=== PATIENT | male | born 1975 | race Two or more races ===

== ENCOUNTER 2019-04-07 08:21 | Day surgery (SDC) | payer OTHER ==
[~2019-04-07] VITALS: Ht 172.7 cm; Wt 118.5 kg
[~2019-04-07 08:21] MED LIST: ACETAMINOPHEN 500 MG TABLET PO ONE; BUPIVACAINE-EPI 0.25%-1:200000 MPF 30 ML VIAL. INJ ONE; HYDROmorphone 2 MG/ML VIAL IV PRN; LIDOCAINE 1% PF 2 ML VIAL. ID PRN; MORPHINE SULFATE 2 MG/ML VIAL. IV PRN; ONDANSETRON PF 4 MG/2 ML VIAL. IV PRN; PROCHLORPERAZINE 10 MG/2 ML VIAL. IV PRN; fentaNYL PF VIAL 100 MCG/2 ML VIAL IV PRN
[2019-04-07] MEDS ORDERED: INDO25CA21 PO (08:54)
[2019-04-07] MEDS ORDERED: LISI-338 PO (08:54)
[2019-04-07] MEDS: IV RINGERS,LACTATED 1000ML 1,000 ML IV SCH ×2 (08:57→13:03)
[2019-04-07] MEDS ORDERED: ONDANSETRON PF 4 MG/2 ML VIAL. ONE (09:49)
[2019-04-07] MEDS ORDERED: DEXAMETHASONE SOD PHOS 20 MG/5 ML VIAL. ONE (09:49)
[2019-04-07] MEDS ORDERED: LIDOCAINE 2% PF 5 ML VIAL. ONE (09:49)
[2019-04-07] MEDS ORDERED: GLYCOPYRROLATE 1 MG/5 ML VIAL. ONE (09:49)
[2019-04-07] MEDS ORDERED: MIDAZOLAM HCL/PF 2 MG/2 ML VIAL. ONE (09:49)
[2019-04-07] MEDS ORDERED: ROCURONIUM 50 MG/5 ML VIAL. ONE (09:49)
[2019-04-07] MEDS ORDERED: fentaNYL PF VIAL 100 MCG/2 ML VIAL ONE ×2 (09:49→11:37)
[2019-04-07] MEDS ORDERED: NEOSTIGMINE METHYLSULFATE 5 MG/5 ML SYRINGE. ONE (09:49)
[2019-04-07] MEDS ORDERED: PROPOFOL 20 ML IV ONE (09:49)
[2019-04-07] MEDS ORDERED: KETOROLAC 30 MG/ML VIAL. ONE (09:52)
--- NOTE | 2019-04-07 12:02 | PDOC4 ---
Operative Note Operative Note Date: 04/07/2019 Preoperative diagnosis: Recurrent incisional hernia Postoperative diagnosis: Same Procedure: Robotic-assisted laparoscopic ventral hernia repair with mesh Surgeon: Gilbert Dictation: Patient is a 43-year-old gentleman who had a umbilical hernia repaired a year or so ago and developed a incisional hernia at the previous repaired site which was repaired and then subsequent has developed another hernia at the site. The procedure of robotic-assisted laparoscopic incisional hernia repair with mesh was explained to the patient in detail risks benefits were also discussed including bleeding infection injury to intra-abdominal contents possibly necessitating further open operations alternatives to this procedure also discussed with the patient who seemed to understand and gave both verbal and written consent to have the procedure performed. Patient was taken to the operating room placed in supine position general anesthesia was initiated once patient was sleep and intubated his abdomen was prepped and draped usual sterile fashion using ChloraPrep and area in the left upper quadrant was injected with quarter percent Marcaine with epinephrine incision was made with a 11 blade scalpel and a 5 mm this port was placed under direct visualization into the abdomen a pneumoperitoneum was then created and the abdomen was inspected no other abdomen maladies were noted other than the incisional hernia in the midline. Da Berny ports were then placed one in the left mid abdomen and one in the left lower abdomen and one in the left upper abdomen the da Berny robot was then brought in and docked all port sites surgeon went to the robotic console using grasper and Endo Shelby scissors the hernia and its contents were reduced. The hernia defect was then closed with a running 20 the LOC nonabsorbable suture. Ventral light ST mesh was then placed over the hernia defect this was secured into place with a running 20V LOC absorbable suture circumferentially. The peritoneum was closed over the mesh closure. The pneumoperitoneum was reduced all ports removed dementia robot was undocked from all ports all port sites were closed for septic and a Monocryl Mastisol Steri-Strips and island dressings were applied. The patient was awakened and extubated in the operating room taken to recovery in stable condition all sponge instrument needle counts listed as correct estimated blood loss 5 mL JANIYA JUAREZ MD Apr 07, 2019 12:01
--- NOTE | 2019-04-07 12:03 | DISCH ---
DISCHARGE INSTRUCTIONS Condition on Discharge Condition on Discharge: Stable Activity After Discharge Activity Instructions for Disc: Avoid exertion Other activity instructions: no lifting more than 20 pounds for 2 weeks Diet after Discharge Diet after Discharge: Regular Wound Incision Care Other wound/incision instructi: May shower in 24 hours Contacting the after DC Call your doctor for: If your condition worsens Follow-Up Follow up with: Dr. Juarez in 2 weeks JANIYA JUAREZ MD Apr 07, 2019 12:03
[2019-04-07] MEDS ORDERED: oxyCODONE/APAP 5/325 1 TAB TABLET PO ONE (13:00)
[2019-04-07] MEDS: fentaNYL PF VIAL 100 MCG/2 ML VIAL IV PRN ×2 (13:03→13:34)
[2019-04-07] MEDS ORDERED: OXYC1TAB15 PO (13:39)
[2019-04-07 13:51] VITALS: BP 144/94
== END 2019-04-07 14:30 | disposition home or self-care (01) ==
LOC: SURG 08:21
PROVIDERS: ATTEND Surgery
DX: K43.2 Incisional hernia without obstruction or gangrene (principal); G47.30 Sleep apnea, unspecified; F32.9 Major depressive disorder, single episode, unspecified; E66.9 Obesity, unspecified; Z68.39 Body mass index [BMI] 39.0-39.9, adult; Z87.891 Personal history of nicotine dependence; Z87.39 Personal history of other diseases of the musculoskeletal system and connective tissue; Z72.89 Other problems related to lifestyle
CPT/HCPCS: 49656; A7015; C1781; J0696; J1100; J1885; J2001; J2250; J2405; J2704; J2710; J3010; J3490; S2900